=== PATIENT | male | born 2000 | race Caucasian/White ===

== ENCOUNTER 2024-11-17 17:18 | Emergency (ER) | payer OTHER, SELFPAY ==
[2024-11-17 17:29] VITALS: BP 163/77; PULSE 106; RESP 20; TEMP 36.6; O2SAT 100; BMI 22.4
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
--- NOTE | 2024-11-17 18:51 | PC.NURSE ---
bilateral eye ph = 8 eyes did not require rinsing. both eyes sclera white denies burning/pain to eyes
[2024-11-17] MEDS: CYCLOBENZAPRINE 10 MG TABLET PO (19:41)
[2024-11-17] MEDS: NAPROXEN 250 MG TABLET 500 MG PO (19:41)
[2024-11-17 19:45] VITALS: BP 150/70; PULSE 65; RESP 18; TEMP 36.6; O2SAT 98
== END 2024-11-17 19:49 | disposition home or self-care (01) ==
PROVIDERS: Emergency Provider Student in an Organized Health Care Education/Training Program
DX: M54.2 Cervicalgia (principal); M25.531 Pain in right wrist; M25.561 Pain in right knee; V89.2XXA Person injured in unspecified motor-vehicle accident, traffic, initial encounter
CPT/HCPCS: 73110; 73562; 99283